=== PATIENT | male | born 1995 | race Caucasian/White ===

== ENCOUNTER 2016-02-19 20:41 | Emergency (ER) | payer SELFPAY ==
--- NOTE | 2016-02-19 21:00 | ED Physician Documentation ---
General Adult - HISTORIAN Historian: patient, spouse - HPI Stated Complaint: Fever, Sore Throat, Cough Chief Complaint: General Adult Additional Information: Occipital AQUINO, feverish, cough, body aches since last night. Doesn't feel like eating. Can't feel his body because his head hurts. - ROS CONST: fever, sweating NEURO/PSYCH: denies: dizziness, tingling - PAST HX Past History: other (hypothyroid - hasn't taken med for more than a year because he says he is stubborn) Allergies/Adverse Reactions: Allergies Allergy/AdvReac Type Severity Reaction Status Date / Time No Known Allergies Allergy Unverified 02/19/16 20:54 Home Medications: Ambulatory Orders Medication Instructions Recorded NK [NK] 02/19/16 - SOCIAL HX Smoking History: non-smoker - FAMILY HX Family History: Yes (brother in law with cough) - VITAL SIGNS Vital Signs: Vital Signs Temp Pulse Resp BP Pulse Ox 100.7 F H 113 H 20 156/86 95 02/19/16 20:45 02/19/16 20:45 02/19/16 20:45 02/19/16 20:45 02/19/16 20:45 - REVIEWED ASSESSMENTS Nursing Assessment Reviewed: Yes Vitals Reviewed: Yes Progress - Progress Progress: Chest 2 views Exam: February 19, 2016. Clinical history: Fever, cough and chest pain. Findings: The cardiac and mediastinal silhouettes are normal. The lungs are clear. There is no evidence of pulmonary infiltrate or pleural effusion. The trachea is midline and the aortic arch contour is normal. The pulmonary vascularity is within normal limits. Impression: No acute cardiopulmonary abnormality. Electronically signed on Feb 19, 2016 9:50:50 PM JEWEL CUPPING MACHINE OPERATOR by: Kamilah bocanegra. Influenza and strep swabs negative. Pinker and feels better after ibuprofen and IV fluids. ED Results Lab/Radiology - Orders Orders: ED Orders Category Date Time Status GRP A STREP SCREEN Stat Lab 02/19/16 Ordered INFLUENZA A&B Stat Lab 02/19/16 Uncollected Ibuprofen [Advil] Med 02/19/16 20:59 Once 800 mg PO NOW ONE General Adult Physical Exam - PHYSICAL EXAM GENERAL APPEARANCE: moderate distress (appears tired, ill. sweaty) EENT: eye inspection normal, pharyngeal erythema NECK: normal inspection, supple RESPIRATORY: no resp distress, breath sounds normal CVS: reg rate & rhythm, heart sounds normal, no murmur ABDOMEN: soft, normal bowel sounds RECTAL: deferred BACK: normal inspection SKIN: normal color, diaphoresis (sweaty forehead) EXTREMITIES: normal range of motion (gait and stance), no evidence of injury NEURO: CN's nml as tested, motor nml, sensation nml Discharge Clincal Impression: URI (upper respiratory infection) Qualifiers: URI type: unspecified viral URI Qualified Code(s): J06.9 - Acute upper respiratory infection, unspecified; B97.89 - Other viral agents as the cause of diseases classified elsewhere Additional Instructions: Drink plenty of water. Trat any fever of 101 or higher with tylenol or ibuprofen. Home Medications: Ambulatory Orders NK [NK] 02/19/16 Comments: Drink plenty of water. Trat any fever of 101 or higher with tylenol or ibuprofen. Condition: Fair Disposition: 01 HOME, SELF-CARE Decision to Admit: NO Decision Time: 22:44
[2016-02-19] MEDS: IBUPROFEN 400 MG TABLET PO ONE (21:02)
[2016-02-19] MEDS: 0.9 % SODIUM CHLORIDE 1,000 ML IV ONE ×2 (21:02→22:38)
[2016-02-19 21:21] LABS: BASOPHILS % 0.7 (0.0-1.5); EOSINOPHILS % 0.9 % (0.0-6.8); LYMPHOCYTES # 1.6 # k/uL (0.6-4.0); MEAN CORPUSCULAR HEMOGLOBIN 28.9 pg (28.0-34.0); MONOCYTES # 0.7 # k/uL (0.0-0.9); MONOCYTES % 7.4 % (0.0-11.0); NEUTROPHILS # 7.2 # k/uL (1.4-7.7)
[2016-02-19 21:34] LABS: eGFR (African) > 60; eGFR (Non-African) > 60
[2016-02-19 23:24] VITALS: BP 143/65
--- NOTE | 2016-02-20 07:29 | Diagnostic Imaging Report ---
[facility] [address] [facility].[address] [id number] Report Submission Date: Feb 19, 2016 9:50:50 PM BINDER OPERATOR Patient Study Name: BETTY MCNEIL JR Date: Feb 19, 2016 9:33:30 PM BINDER OPERATOR Modality Type: CR Gender: M Description: CHEST : 89 Institution: [facility] Physician: MISA MILES Chest 2 views Exam: February 19, 2016. Clinical history: Fever, cough and chest pain. Findings: The cardiac and mediastinal silhouettes are normal. The lungs are clear. There is no evidence of pulmonary infiltrate or pleural effusion. The trachea is midline and the aortic arch contour is normal. The pulmonary vascularity is within normal limits. Impression: No acute cardiopulmonary abnormality. Electronically signed on Feb 19, 2016 9:50:50 PM BINDER OPERATOR by: Kamilah ROSS
[2016-02-20 16:18] LABS: ADENOVIRUS DNA NEGATIVE (NEGATIVE); BORDETELLA PERTUSSIS DNA NEGATIVE (NEGATIVE); SOURCE: NASOPHARYNGEAL SWAB
== END 2016-02-19 23:20 | disposition home or self-care (01) ==
LOC: ED 20:41
DX: J06.9 Acute upper respiratory infection, unspecified (principal)
CPT/HCPCS: 71020; 80053; 85025; 87070; 87400; 87486; 87581; 87633; 87798; 87880; 99282; J7030; S1016

== ENCOUNTER 2017-08-16 23:15 | Emergency (ER) | payer SELFPAY ==
[2017-08-17] MEDS ORDERED: IBUPROFEN 200 MG TABLET PO ONE (00:12)
--- NOTE | 2017-08-17 06:37 | Diagnostic Imaging Report ---
SOTO FERRELL (MOLDER PUNCH) - ER [facility] [address] [id number] Report Submission Date: Aug 17, 2017 12:07:01 AM CDT Patient Study Name: BETTY MCNEIL Date: Aug 16, 2017 11:50:41 PM CDT Modality Type: DX Gender: M Description: CHEST : 89 Institution: [facility] Physician: SOTO FERRELL (MOLDER PUNCH) - ER Chest, 2 view History: CHEST PAIN X 3 DAYS, PT COMPLAINS OF PAIN IN MIDDLE OF CHEST Findings: The heart size is normal. The lungs are clear. There is no pleural effusion or pneumothorax identified. The osseous structures are normal. Impression: 1. No acute pulmonary disease. Electronically signed on Aug 17, 2017 12:07:01 AM CDT by: Ran ROSS
--- NOTE | 2017-08-18 00:32 | ED Physician Documentation ---
General Adult - HISTORIAN Historian: patient, spouse - HPI Stated Complaint: chest pain Chief Complaint: General Adult Further Comments: yes (22 year old male patient presents with complaints of chest discomfort worse with inspiration and movement. Reports symptoms started 3 days ago. Patient denies SOB, fever, nausea, radiation of pain, or vomiting.) - ROS CONST: no problems EYES/ENT: none CVS/RESP: chest pain. denies: shortness of breath, cough GI/: none MS/SKIN/LYMPH: none NEURO/PSYCH: denies: headache, fainting, dizziness, tingling, numbness, difficulty walking, difficulty with speech, anxiety, depression, other - PAST HX Past History: none Other History: none Surgeries/Procedures: none Allergies/Adverse Reactions: Allergies Allergy/AdvReac Type Severity Reaction Status Date / Time No Known Allergies Allergy Verified 08/16/17 23:37 Home Medications: Ambulatory Orders Medication Instructions Recorded NK [NK] 02/19/16 - SOCIAL HX Smoking History: cigarettes Drug Use: none - FAMILY HX Family History: No - VITAL SIGNS Vital Signs: Vital Signs Temp Pulse Resp BP Pulse Ox 98.3 F 75 18 152/81 97 08/16/17 23:16 08/16/17 23:16 08/16/17 23:16 08/16/17 23:16 08/16/17 23:16 - REVIEWED ASSESSMENTS Nursing Assessment Reviewed: Yes Vitals Reviewed: Yes Progress - EKG/XRAY/CT EKG: NSR (no acute changes) ED Results Lab/Radiology - Orders Orders: ED Orders Category Date Time Status CHEST 2VIEW [RAD] Routine Exams 08/16/17 23:49 Ordered CHEST 2VIEW [RAD] Stat Exams 08/16/17 Ordered Ibuprofen [Advil] Med 08/17/17 00:12 Once 600 mg PO NOW ONE General Adult Physical Exam - PHYSICAL EXAM GENERAL APPEARANCE: [id number] N EENT: eye inspection normal, TIM RESPIRATORY: no resp distress, breath sounds normal, other (c/o chest discomfort with mild palpation) CVS: reg rate & rhythm, heart sounds normal, equal pulses, no murmur, no gallop , PMI nml, no JVD, no friction rub, 24 ABDOMEN: soft, no organomegaly, normal bowel sounds, no abdominal bruit, no distension BACK: normal inspection, no CVA tenderness SKIN: normal color, warm/dry, NR, INT, PAL, DR EXTREMITIES: non-tender, normal range of motion, no evidence of injury, no edema , J, TECHNICAL SERVICES ASSISTANT NEURO: oriented X3, CN's nml as tested, motor nml, sensation nml, mood/affect nml Discharge Clincal Impression: Non-cardiac chest pain Referrals: Primary Doctor,No [Primary Care Provider] - 2 Days Additional Instructions: Non cardiac chest pain Rest Tylenol or ibuprofen as needed for discomfort Make an follow Er appointment with your primary care doctor in the next 3-5 days. Return to the ER if you have Chest pain with shortness of breath, nausea and sweating all over. Or pain radiating to jaws or shoulders. Condition: Stable Disposition: 01 HOME, SELF-CARE Decision to Admit: NO Decision Time: 00:13
[2017-08-18 00:34] VITALS: BP 138/80
== END 2017-08-17 00:15 | disposition home or self-care (01) ==
LOC: ED 23:15
DX: R07.89 Other chest pain (principal)
CPT/HCPCS: 71046; 99284